=== PATIENT | female | born 1925 | race Caucasian/White ===

== ENCOUNTER 2017-02-25 09:12 | Outpatient (CLI) ==
[2017-02-25 10:12] VITALS: BP 108/65; TEMP 97.3
[2017-02-25] MEDS ORDERED: PROCRIT SUBCUT STA (10:20)
== END 2017-02-25 09:13 | disposition home or self-care (01) ==
LOC: OPMED 09:12
PROVIDERS: ATTEND Family Medicine
DX: R06.02 Shortness of breath (principal); N18.4 Chronic kidney disease, stage 4 (severe); D63.1 Anemia in chronic kidney disease
CPT/HCPCS: 96372

== ENCOUNTER 2017-03-28 11:05 | Outpatient (CLI) ==
[2017-03-28] MEDS ORDERED: PROCRIT SUBCUT STA (11:42)
[2017-03-28 12:28] LABS: HEMATOCRIT 22.2 % (37.0-47.0); HEMOGLOBIN 7.1 g/dl (12.0-16.0)
[2017-03-28 17:57] VITALS: BP 90/50; TEMP 97.8
[2017-03-28 18:50] LABS: HEMATOCRIT 23.9 % (37.0-47.0); HEMOGLOBIN 7.8 g/dl (12.0-16.0)
== END 2017-03-28 11:06 | disposition home or self-care (01) ==
LOC: LAB 11:05 → OPMED 11:06
PROVIDERS: ATTEND Family Medicine
DX: N18.4 Chronic kidney disease, stage 4 (severe) (principal); D63.1 Anemia in chronic kidney disease
CPT/HCPCS: 36415; 36430; 85014; 85018; 86850; 86900; 86922; 96372; 99211

== ENCOUNTER 2017-04-15 11:15 | Outpatient (CLI) ==
[2017-04-15 11:51] LABS: HEMATOCRIT 23.2 % (37.0-47.0); HEMOGLOBIN 7.2 g/dl (12.0-16.0)
[2017-04-15] MEDS ORDERED: PROCRIT SUBCUT ONE (15:28)
[2017-04-15 19:29] VITALS: BP 92/50; TEMP 97.9
[2017-04-15 20:00] LABS: HEMATOCRIT 23.3 % (37.0-47.0); HEMOGLOBIN 7.5 g/dl (12.0-16.0)
== END 2017-04-15 11:16 | disposition home or self-care (01) ==
LOC: LAB 11:15 → OPMED 11:16
PROVIDERS: ATTEND Family Medicine
DX: N18.3 Chronic kidney disease, stage 3 (moderate) (principal); D63.1 Anemia in chronic kidney disease
CPT/HCPCS: 36415; 36430; 85014; 85018; 86850; 86900; 86922

== ENCOUNTER 2017-05-08 15:07 | Outpatient (CLI) ==
[2017-05-08] MEDS ORDERED: PROCRIT SUBCUT STA (15:23)
== END 2017-05-08 15:08 | disposition home or self-care (01) ==
LOC: OUTPT 15:07
PROVIDERS: ATTEND Family Medicine
DX: N18.3 Chronic kidney disease, stage 3 (moderate) (principal); D63.1 Anemia in chronic kidney disease
CPT/HCPCS: 96372

== ENCOUNTER 2017-05-28 13:11 | Outpatient (CLI) ==
[2017-05-28] MEDS ORDERED: PROCRIT SUBCUT STA (13:33)
[2017-05-28 13:37] VITALS: BP 99/62; TEMP 97.6
== END 2017-05-28 13:12 | disposition home or self-care (01) ==
LOC: OPMED 13:11
PROVIDERS: ATTEND Family Medicine
DX: N18.3 Chronic kidney disease, stage 3 (moderate) (principal); D63.1 Anemia in chronic kidney disease
CPT/HCPCS: 96372

== ENCOUNTER 2017-06-19 13:18 | Outpatient (CLI) ==
[2017-06-19 13:33] VITALS: BP 146/63; TEMP 97.9
[2017-06-19] MEDS ORDERED: PROCRIT SUBCUT STA (13:35)
== END 2017-06-19 13:19 | disposition home or self-care (01) ==
LOC: OPMED 13:18
PROVIDERS: ATTEND Family Medicine
DX: N18.3 Chronic kidney disease, stage 3 (moderate) (principal); D63.1 Anemia in chronic kidney disease
CPT/HCPCS: 96372

== ENCOUNTER 2017-06-26 12:59 | Outpatient (CLI) ==
[2017-06-26 14:39] VITALS: BP 113/67; TEMP 97.3
[2017-06-26] MEDS ORDERED: PROCRIT SUBCUT STA (14:41)
== END 2017-06-26 13:00 | disposition home or self-care (01) ==
LOC: LAB 12:59 → OUTPT 13:00
PROVIDERS: ATTEND Family Medicine
DX: N18.3 Chronic kidney disease, stage 3 (moderate) (principal); D63.1 Anemia in chronic kidney disease
CPT/HCPCS: 36415; 80053; 81001; 82306; 82570; 83540; 83970; 84156; 85025; 85610; 96372

== ENCOUNTER 2017-07-11 13:09 | Outpatient (CLI) | payer OTHER ==
[2017-07-11] MEDS ORDERED: PROCRIT SUBCUT STA (14:16)
[2017-07-11 14:21] VITALS: BP 108/62; TEMP 97.8
== END 2017-07-11 13:10 | disposition home or self-care (01) ==
LOC: OPMED 13:09
PROVIDERS: ATTEND Family Medicine
DX: N18.4 Chronic kidney disease, stage 4 (severe) (principal); D63.1 Anemia in chronic kidney disease; N17.9 Acute kidney failure, unspecified; R06.02 Shortness of breath; I50.9 Heart failure, unspecified
CPT/HCPCS: J0885; 36415; 80053; 85025; 96372